=== PATIENT | female | born 1995 ===

== ENCOUNTER 2017-08-27 12:45 | Inpatient (IN) | payer OTHER ==
[~2017-08-27] VITALS: Ht 160 cm; Wt 66.2 kg
[2017-09-08] MEDS ORDERED: FOLIC ACID1 MG PO (07:31)
[2017-09-08] MEDS ORDERED: PRENATAL TABLE1 EACH PO (07:31)
[2017-09-08] MEDS ORDERED: LAMICTAL150 MG PO (07:32)
== END 2017-09-10 12:21 | disposition home or self-care (01) | DRG 775 ==
LOC: OB/GYN 09-08 06:10 → LDR 09-08 06:10 → OB/GYN 09-08 14:18
DX: O69.81X0 Labor and delivery complicated by cord around neck, without compression, not applicable or unspecified (principal); Z37.0 Single live birth; Z3A.39 39 weeks gestation of pregnancy